=== PATIENT | male | born 1980 | race Caucasian/White ===

== ENCOUNTER 2017-07-29 14:05 | Emergency (ER) | payer OTHER ==
[~2017-07-29] VITALS: Ht 175.3 cm; Wt 68.0 kg
[2017-07-29 14:05] VITALS: BP 152/88
[~2017-07-29 14:05] MED LIST: NKM; VIBRAMYCIN100 MG ORAL
--- NOTE | 2017-07-29 14:39 | Emergency Room Report ---
History of Present Illness General Chief Complaint: Behavioral Complaint Source: Patient Present Illness HPI 36-year-old male presents to the emergency department to get checked out patient denies physical symptoms at this time patient states that he has been do surveillance and under close watch at the custodial that he is at due to previous hospital orders and that he is not been told what his diagnosis is. Patient states that he has paranoid schizophrenia on his record but he believes he has not however the hospital is and the shelters are working against him. Patient states he has not been taking medications that he was prescribed. Patient denies SI or HI. he reports drug use. Denies CP, Palpitations, LOC, AMS , dizziness, Changes in Vision, Sensation, paresthesias, or a sudden severe headache. Allergies: Coded Allergies: No Known Allergies (Unverified , 01/24/13) Patient History Past Medical History: see triage record Past Surgical History: none Pertinent Family History: none Reviewed Nursing Documentation: PMH: Agreed, PSxH: Agreed Nursing Documentation-PMH Past Medical History: No Stated History Review of Systems All Other Systems: negative except mentioned in HPI Physical Exam Vital Signs Date Time Temp Pulse Resp B/P (MAP) Pulse Ox O2 Delivery O2 Flow Rate FiO2 07/29/17 13:48 97.7 92 16 152/88 99 Room Air Sp02 EP Interpretation: reviewed, normal General Appearance: no apparent distress, alert, GCS 15, non-toxic Head: normocephalic, atraumatic Eyes: bilateral eye normal inspection, bilateral eye PERRL ENT: hearing grossly normal, normal voice Neck: full range of motion, supple/symm/no masses Respiratory: chest non-tender, lungs clear, normal breath sounds, speaking full sentences Cardiovascular #1: regular rate, rhythm, normal capillary refill Gastrointestinal: normal bowel sounds, non tender, soft, no guarding, no rebound Rectal: deferred Genitourinary: normal inspection, no CVA tenderness Musculoskeletal: back normal, gait/station normal, normal range of motion, non- tender Neurologic: alert, oriented x3, responsive, motor strength/tone normal, sensory intact, speech normal Psychiatric: anxious Skin: normal color, no rash, warm/dry, well hydrated, other - several scabbed abrasions on the left forearm, healing, no infection noted. no evidence of abscesses Lymphatic: no adenopathy Medical Decision Making PA Attestation Dr. Evans is my supervising Physician whom patient management has been discussed with. Diagnostic Impression: Primary Impression: Rash and nonspecific skin eruption Additional Impression: Behavioral disorder ER Course 36-year-old male presents to the emergency department to get checked out patient denies physical symptoms at this time patient states that he has been do surveillance and under close watch at the custodial that he is at due to previous hospital orders and that he is not been told what his diagnosis is. Patient states that he has paranoid schizophrenia on his record but he believes he has not however the hospital is and the shelters are working against him. Patient states he has not been taking medications that he was prescribed. Patient denies SI or HI. he reports drug use. Denies CP, Palpitations, LOC, AMS , dizziness, Changes in Vision, Sensation, paresthesias, or a sudden severe headache. Ddx considered but are not limited to AMS, ETOH, infection, Trauma/Fall, CVA, [place] , Psych, homelessness, infection - Pt. is anxious and paranoid, hx of paranoid schizophrenia, admits not taking meds. Vital signs: are WNL, pt. is afebrile H&PE are most consistent with Normal medical screening exam with hx of paranoid schizophrenia and drug use. No acute injury or disease noted at this time. pt. is NAD, NON-toxic, able to answer questions appropriately, pt. is oriented, and no signs of trauma or focal neurological deficits. -Pt. is he is staying at a custodial. ORDERS: none required at this time, the diagnosis is clinical ED INTERVENTIONS: -Bacitracin applied to scabs on the left fore arm. Pt. is stable for close outpatient follow up. DISCHARGE: At this time pt. is stable for d/c to home. Will provide printed patient care instructions, and any necessary prescriptions. Care plan and follow up instructions have been discussed with the patient prior to discharge. Last Vital Signs Date Time Temp Pulse Resp B/P (MAP) Pulse Ox O2 Delivery O2 Flow Rate FiO2 07/29/17 14:05 97.7 16 152/88 99 Room Air 07/29/17 13:48 92 Disposition: HOME, SELF-CARE Condition: Stable Scripts Bacitracin/Polymyxin B Sulfate (BACITRACIN-POLYMYXIN OINTMENT) 28.35 Gm Oint...g. 1 APPLIC TP BID, #28.3 GM Prov: Chapis Leo 07/29/17 Patient Instructions: Medical Screening Exam Additional Instructions: Take medications as directed. Follow up with a Primary Care Provider in 3-5 days, even if your symptoms have resolved. --Please review list of primary care clinics, if you do not already have a primary care provider Return sooner to ED if new symptoms occur, or current symptoms become worse. - Please note that this Emergency Department Report was dictated using [employer] technology software, occasionally this can lead to erroneous entry secondary to interpretation by the dictation equipment. Chapis Leo Jul 29, 2017 14:39
[2017-07-29] MEDS ORDERED: BACITRACIN-P28.35 GM TP (14:40)
[2017-07-29] MEDS ORDERED: Bacitracin Oint UD TOPIC ONE (14:45)
[2017-07-29 15:17] VITALS: BP 145/82
== END 2017-07-29 15:10 | disposition home or self-care (01) ==
LOC: EDBD 14:05 → EMR 14:40
DX: R21 Rash and other nonspecific skin eruption (principal); F91.9 Conduct disorder, unspecified
CPT/HCPCS: 99283